=== PATIENT | female | born 1970 | race Caucasian/White ===

== ENCOUNTER → 2024-10-09 18:09 | Outpatient (REF) | payer BC, SELFPAY | LOC: MRI 18:09 | PROVIDERS: ATTENDING PHYSICIAN Emergency Medicine Sports Medicine; FAMILY PHYSICIAN Family Medicine | DX: M75.82 Other shoulder lesions, left shoulder (principal) | CPT/HCPCS: 73221 ==

== ENCOUNTER → 2024-12-05 12:06 | Outpatient (REF) | payer BC, SELFPAY | LOC: MRI 3T 12:06 | PROVIDERS: ATTENDING PHYSICIAN Orthopaedic Surgery; FAMILY PHYSICIAN Family Medicine | DX: M75.82 Other shoulder lesions, left shoulder (principal) | CPT/HCPCS: 23350; 73040; 73222 ==